=== PATIENT | female | born 1985 ===

== ENCOUNTER → 2017-09-06 | Emergency (ER) | payer OTHER ==
[~2017-09-06] VITALS: Ht 154.9 cm; Wt 78.9 kg
== END | disposition home or self-care (01) ==
LOC: ER 07:04
DX: J45.998 Other asthma (principal); B34.9 Viral infection, unspecified

== ENCOUNTER → 2017-09-21 | Outpatient (CLI) | payer OTHER | END | disposition home or self-care (01) | LOC: PPH VACUNA 14:46 | DX: Z23 Encounter for immunization (principal) ==

== ENCOUNTER → 2017-10-20 | Outpatient (CLI) | payer OTHER | END | disposition home or self-care (01) | LOC: PPH VACUNA 16:20 | DX: Z23 Encounter for immunization (principal) ==